=== PATIENT | male | born 1945 | race Caucasian/White ===

== ENCOUNTER → 2016-07-03 | Outpatient (CLI) | payer MEDICARE ==
[~2016-07-03] MED LIST: ASPIRIN EC81 MG PO; COQ-10100 MG PO; FLEXERIL DPS5 MG PO; LOPRESSOR DPS100 MG PO; NEXIUM40 MG PO; OMEGA-3 DPS1000 MG PO; ROSUVASTATIN CAL5 MG PO; ULTRAM DPS50 MG PO; VITAMIN B-12500 MCG PO; ZESTORETIC 20/11 TAB PO
== END | disposition home or self-care (01) ==
LOC: PTH.S 08:13
DX: Z01.818 Encounter for other preprocedural examination (principal)

== ENCOUNTER 2016-07-12 06:10 | Inpatient (IN) | payer MEDICARE ==
[~2016-07-12] VITALS: Ht 177.8 cm; Wt 112.7 kg
--- NOTE | ~2016-07-12 | DS ---
ADMIT: 07/12/2016 RM/LOC: 507 [facility] MR#: [id number] [facility]#: [id number] [address] [address] [place] [address] [place] [address] General Discharge Summary SEX: M AGE: 71 : 1945 ADMISSION DATE: 07/12/2016 DISCHARGE DATE: 07/15/2016 SERVICE: Neurosurgery. REASON FOR ADMISSION: 1. Degenerative lumbar stenosis. 2. Acquired spondylolisthesis of lumbosacral region. 3. Low back pain. PROCEDURE: Transfemoral lumbar interbody fusion with pedicle screw placement at lumbar 4-5. HOSPITAL COURSE: Mr. Cannon tolerated his procedure well. Postoperatively, he was taken to the Med/Surg floor for monitoring and care. Postop day #1, he was awake and alert. He was afebrile. His vital signs were stable. He was moving all extremities x4 with 5/5 strength. His dressing was clean, dry, and intact. His On-Q was patent. His QUINTON drain was patent with serosanguineous drainage. He was working with Physical Therapy and Occupational Therapy and tolerating this well. Postop day #2, he was awake and alert. He was afebrile. His vital signs were stable. He was moving all extremities x4. His On-Q was leaking and was discontinued. His QUINTON drain was patent with serosanguineous drainage. His incision was clean, dry, and intact. He continued to work with Physical Therapy and Occupational Therapy. Postop day #3, his vital signs were stable. His QUINTON drain had decreased output and was discontinued. He was moving all extremities x4 with 5/5 strength. His incision was clean, dry, and intact and no hematoma or cerebrospinal fluid accumulation was noted. He was ambulating, urinating, and defecating per his norm and was requesting discharge home. DISCHARGE CONDITION: Good. MEDICATIONS: Lisinopril/hydrochlorothiazide 20/12.5 mg daily, rosuvastatin 5 mg daily, metoprolol succinate ER 100 mg daily, Nexium 40 mg daily, aspirin 162 mg daily, vitamin B12 500 mg daily, fish oil 1000 mg daily, CoQ10 100 mg daily, Flexeril 5 mg p.o. q.8 hours p.r.n. spasms, and tramadol 50 mg p.o. q.4 hours p.r.n. pain. ADMIT: 07/12/2016 RM/LOC: 507 [facility] MR#: [id number] [address] [address] [place] [address] [place] [address] General Discharge Summary SEX: M AGE: 71 : 1945 DISCHARGE INSTRUCTIONS: Per Dr. Graves, he can have a regular diet. He may shower, he should not take any tub baths, he should pat his incision dry. He will call with any questions or concerns including neurological worsening, signs or symptoms of infection, or any other issues. He also should not lift anything greater than 15 pounds. FOLLOWUP: He will follow up in clinic in 2 weeks. DISPOSITION: He was discharged home. Total [id number] time for the discharge planning, care coordination was 30 minutes. Elana Frazier APRN / Marcio Graves MD / velia JOB #: [id number] CC: Marcio Graves MD, Attending Physician Miah Dowell Jr, MD, Family Physician
[2016-07-17] MEDS ORDERED: ZESTORETIC 20/11 TAB PO (07:32)
[2016-07-17] MEDS ORDERED: LOPRESSOR DPS100 MG PO (07:33)
[2016-07-17] MEDS ORDERED: ROSUVASTATIN CAL5 MG PO (07:33)
[2016-07-17] MEDS ORDERED: ASPIRIN EC81 MG PO (07:33)
[2016-07-17] MEDS ORDERED: NEXIUM40 MG PO (07:33)
[2016-07-17] MEDS ORDERED: VITAMIN B-12500 MCG PO (07:34)
[2016-07-17] MEDS ORDERED: COQ-10100 MG PO (07:34)
[2016-07-17] MEDS ORDERED: OMEGA-3 DPS1000 MG PO (07:34)
[2016-07-17] MEDS ORDERED: FLEXERIL DPS5 MG PO (07:35)
[2016-07-17] MEDS ORDERED: ULTRAM DPS50 MG PO (07:35)
--- NOTE | 2016-07-17 08:22 | OR ---
ADMIT: 07/12/2016 RM/LOC: 507 [facility] MR#: [id number] [address] [address] [place] [address] [place] [address] Operative/Delivery Room Report SEX: M AGE: 71 : 1945 SURGERY DATE: 07/12/2016 SURGEON: Marcio Graves MD PREOPERATIVE DIAGNOSIS: Spondylolisthesis with severe stenosis causing pain and neurogenic claudication. POSTOPERATIVE DIAGNOSIS: Spondylolisthesis with severe stenosis causing pain and neurogenic claudication. PROCEDURES: 1. Lumbar 4-5 wide laminectomy and facetectomy for decompression of thecal sac. 2. Posterior bilateral pedicle screw placement for fixation bilaterally lumbar 4-5. 3. Diskectomy for arthrodesis lumbar 4-5. 4. [place] of autograft with morcellation and implantation into the intervertebral space of lumbar 4-5 as well as posterolateral gutters. 5. Placement of structural tricortical allograft at the 4-5 disk level. 6. Transforaminal lumbar interbody arthrodesis 4-5. 7. Posterolateral lumbar arthrodesis 4-5. 8. Posterior nonsegmental instrumentation, lumbar 4 on 5 with posterior pedicle screw instrumentation utilizing [employer] instrumentation. 9. Intraoperative fluoroscopy with physician interpretation of films. 10.Intraoperative CT scan. DESCRIPTION OF PROCEDURE: After gaining informed consent, the patient was taken to the operative theater, placed on general endotracheal anesthesia in supine position and turned prone on a Carter table. All pressure points purposely padded prior to performing the procedure. He was prepped and draped in the usual sterile fashion. A time-out was utilized to ascertain the correct site and side of surgery as well as other pertinent patient historical information. Counts were obtained at the beginning and end of the case with no change betwixt the two. Antibiotics were given within 1 hour of incision. Fluoroscope was brought into the field, and lumbar 4-5 level was delineated. An incision was fashioned, this was then taken down to the thoracodorsal fascia, which was sharply incised and then Ni periosteal elevator was used for subperiosteal dissection off the 4 and 5 spinous process and lamina out over top of the facets. The facets were severely arthritic and hypertrophied with synovial cyst components as well as severe degeneration. At this point, attention was turned to laminectomy and facetectomy. Various curettes, rongeurs, and the high-speed drill were used to resect the material saving the drilled off bony material as well as the bitten off bony material for autograft in a morcellated fashion. This was widely taken off under cutting down to the height of the pedicle in a cranial-caudad fashion over top of the disk space and up into the lumbar 4 region. Lumbar 4 and 5 were widely decompressed. There was severe and significant hypotrophic ADMIT: 07/12/2016 RM/LOC: 507 [facility] MR#: [id number] [facility] [address] [address] [facility] [place] [address] Operative/Delivery Room Report SEX: M AGE: 71 : 1945 ligamentous tissue as well. This was resected as widely as possible decompressing out over top of the neural foramen. Once this was completed, pristine hemostasis was obtained, and attention was turned to instrumentation. Utilizing standard landmarks and direct visualization, the posterior representation of the pedicle was delineated. This was then drilled down and the pedicle finder was used to pass into the pedicle and vertebral body then sounding at 360 degrees and at depth and then placing vancomycin powder coated screws. This was done bilaterally at lumbar 4 and lumbar 5 with no sign of complication. Once this was completed, the imani was placed and the construct was placed under distraction for access to the disk. Utilizing extreme caution with gentle medialization of the thecal sac and nerve root in the L5 nerve root, the disk space was accessed from the left, this was sharply incised at the annular ligament and resected various curettes, rongeurs, and rasps as well as scrapers were used to resect as much of the disk as was possible resecting the cartilaginous endplates as widely as possible making sure not to create any excursion outside of the annular ligament with the exception of the single hole to enter this area. This was sized for a size 13 structural allograft cage. Prior to doing this, the autograft was heavily packed in. Once this was completed, the structural allograft was brought into the field and tapped into place. This was visualized as within the disk space and not encroaching into the neural foramen or spinal canal at all. Pristine hemostasis was obtained. A CT scan was obtained, evaluating the hardware. At this point, the system was taken out of distraction and allowed to settle into some compression with torquing of the instrumentation and placing of both rods and set screws. There was not room between the screw heads for placements of a cross connector. Pristine hemostasis was obtained. QUINTON drain was daylighted out and sewn in place to the thoracodorsal fascia, so it was sewn shut with simple interrupted 0 Vicryl. Simple, inverted, interrupted 2-0 ADMIT: 07/12/2016 RM/LOC: 507 [facility] MR#: [id number] [address] [place] [id number] [place] [address] Operative/Delivery Room Report SEX: M AGE: 71 : 1945 Vicryl used in the hypodermic tissue and subcuticular 3-0 Stratafix on the skin with Steri-Strips over that. Stab incisions were fashioned, and ropivacaine catheters were passed into the muscle loaded with 5 mL of Marcaine on each side and connected to the ON-Q pain ball. COMPLICATIONS: None. ESTIMATED BLOOD LOSS: Charted. SPECIMEN: Disk. DISPOSITION: Extubated and taken to postanesthesia care unit. Marcio Graves MD/ velia JOB #: [id number] CC: Marcio Graves, Attending Physician Miah Dowell Jr., Family Physician
== END 2016-07-15 11:41 | disposition home or self-care (01) | DRG 460 ==
LOC: 5MS 06:10 → WOR 06:10 → 5MS 14:45
PROVIDERS: ADMIT Neurological Surgery
PROC: 0SG0071 Fusion of Lumbar Vertebral Joint with Autologous Tissue Substitute, Posterior Approach, Posterior Column, Open Approach (ICD-10-PCS; principal; 2016-07-12)
PROC: 0SB20ZZ Excision of Lumbar Vertebral Disc, Open Approach (ICD-10-PCS; principal; 2016-07-12)
PROC: 0SG00AJ Fusion of Lumbar Vertebral Joint with Interbody Fusion Device, Posterior Approach, Anterior Column, Open Approach (ICD-10-PCS; principal; 2016-07-12)
DX: M43.16 Spondylolisthesis, lumbar region (principal); I10 Essential (primary) hypertension; G47.30 Sleep apnea, unspecified; E78.5 Hyperlipidemia, unspecified; E78.00 Pure hypercholesterolemia, unspecified; I25.10 Atherosclerotic heart disease of native coronary artery without angina pectoris; M10.9 Gout, unspecified; K21.9 Gastro-esophageal reflux disease without esophagitis; Z79.82 Long term (current) use of aspirin; Z87.442 Personal history of urinary calculi; Z95.1 Presence of aortocoronary bypass graft; Z95.5 Presence of coronary angioplasty implant and graft; Z87.891 Personal history of nicotine dependence